=== PATIENT | female | born 1980 | race Caucasian/White ===

== ENCOUNTER 2017-08-06 06:13 | Day surgery (SDC) | payer OTHER ==
[~2017-08-06] VITALS: Ht 162.6 cm; Wt 53.5 kg
[~2017-08-06 06:13] MED LIST: ALL10TAB27 PO; AMIT50TA PO; CLON0.5T PO; COPA1INJ SC; CYCL10TA PO; DOXA1TAB71 PO; MYRB25TA PO; OMEP20CA3 PO; OXYC1TAB23 PO; VENL150C43 PO; VITA1CAP7 PO; [UNRECOGNIZED DRUG - OTHER] PO; [UNRECOGNIZED DRUG - OTHER] PO; botox IM
[2017-08-06] MEDS ORDERED: LR 1,000 ML IV ONE (06:30)
[2017-08-06] MEDS ORDERED: BUPIVACAINE HCL 0.5% 10 ML VIAL As Ordered ONE (06:55)
[2017-08-06] MEDS ORDERED: LIDOCAINE 1% SDV INJ 30 ML VIAL As Ordered ONE (06:55)
[2017-08-06] MEDS ORDERED: dexameTHASONE 4 MG/ML 1ML VIAL (J1100) As Ordered ONE (06:56)
[2017-08-06] MEDS ORDERED: fentaNYL 100 MCG/2 ML INJECTION (J3010) As Ordered ONE ×2 (07:03→08:12)
[2017-08-06] MEDS ORDERED: MIDAZOLAM INJ 2 MG/2 ML VIAL (J2250) As Ordered ONE (08:12)
[2017-08-06] MEDS ORDERED: ONDANSETRON 4MG/2ML VIAL (J2405) As Ordered ONE (08:12)
[2017-08-06] MEDS ORDERED: PROPOFOL 200 MG/20 ML VIAL As Ordered ONE (08:12)
[2017-08-06] MEDS ORDERED: LIDOCAINE 2% INJ 100 MG/5 ML SDV (FOR ANES.) As Ordered ONE (08:12)
[2017-08-06] MEDS ORDERED: OXYC1TAB23 PO (09:01)
[2017-08-06] MEDS ORDERED: LR 1,000 ML IV SCH (09:45)
[2017-08-06] MEDS ORDERED: ONDANSETRON 4MG/2ML VIAL (J2405) IV PRN (09:45)
[2017-08-06] MEDS ORDERED: PERCOCET 5MG/325MG TAB PO PRN (09:45)
[2017-08-06 11:01] VITALS: BP 102/61
--- NOTE | 2017-08-07 09:20 | RO ---
DATE OF PROCEDURE: 08/06/2017 PREPROCEDURE DIAGNOSES: Left foot bunion, hallux valgus, dorsal exostosis and chronic plantar fascitis. POSTPROCEDURE DIAGNOSES: Left foot bunion, hallux valgus, dorsal exostosis and chronic plantar fascitis. PROCEDURE: Left foot bunionectomy with first metatarsal osteotomy, dorsal exostectomy, and endoscopic plantar fascia release. SURGEON: Filipe Hurst DPM [employer]OR: None. ANESTHESIA: Monitored anesthesia care, preoperative injection of 20 mL of 1:1 mixture of 1% lidocaine plain and 0.5% Marcaine plain. ESTIMATED BLOOD LOSS: Minimal. MATERIALS: Arthrex 3.5 headless screw, #3-0 and #4-0 Vicryl, #4-0 nylon. INJECTABLES: 7 mL of Lidocaine and 1 mL of Decadron. COMPLICATIONS: None. CONDITION: Stable. INDICATIONS: Kirstin Gardner is a 36-year-old female who presents to [facility] with complaints of painful bunion, exostosis and chronic plantar fascitis to her left foot. She presents today for surgical correction. The patient's side and site were identified and marked in the preoperative holding area. Consent was reviewed and obtained. All risks, complications, and alternatives to the procedure were explained to the patient in detail. All questions were answered. DESCRIPTION OF PROCEDURE: The patient was brought to the operating room and placed on the operative room table in the supine position, monitored anesthesia care was delivered by the anesthesia team. Preoperative injection of 20 mL of 1:1 mixture of 1% lidocaine plain and 0.5% Marcaine plain were injected in the left foot. The left foot was prepped and draped in the normal sterile fashion. The patient received Ancef preoperatively. Attention was first paid to the heel. A medial incision was made with a #15 blade. A hemostat was used to palpate the plantar aspect of the plantar fascia. Following this, the trocar was inserted through the medial portal and a stab incision was made to the lateral heel, creating an exit portal. The trocar was removed leaving the cannula in place. The camera was inserted through the lateral portal and the plantar fascia was visualized. Using the Endotrac plantar fascia blade, the plantar fascia was released approximately two-thirds from medial to lateral, leaving the lateral one-third of the fascia intact. The site was irrigated with normal saline. Cannula was removed. Incision was repaired with #4-0 nylon. Next, attention was paid to the bunion and exostosis. A dorsal incision was drawn and carried through with a #15 blade. Dissection was carried first to the exostosis, which was located over the first metatarsocuneiform joint. Linear capsulotomy was performed, exposing the exostosis. This was resected with sagittal saw and smoothed with a rasp. The site was irrigated with normal saline and the capsule was repaired with #3-0 Vicryl. Next, attention was paid distally. A T-capsulotomy was performed, exposing the metatarsal head. Next, a lateral release was performed releasing the lateral capsule, sesamoidal ligaments and adductor tendon. McGlamry elevator was used to release the plantar structures. The medial eminence was resected with sagittal saw. An osteotomy was performed of the metatarsal head, transposing it laterally. This was fixated with an Arthrex 3.5 headless screw. The remaining bone ledge was resected with sagittal saw and smoothed with rasp. Site was irrigated with normal saline. Capsular repair was performed with #3-0 Vicryl, subcutaneous was closed with #4-0 Vicryl and skin was closed with #4-0 nylon. 1 mL Decadron was injected to the plantar heel. Sterile dressings were applied. Tourniquet was deflated. The patient was brought to post anesthesia care unit (PACU) vital signs stable, neurovascular status intact. She will be partial weightbearing of the left foot. She will followup in the office in 2 days.
== END 2017-08-06 11:12 | disposition home or self-care (01) ==
LOC: M SDC 06:13
PROVIDERS: ATTEND Podiatrist Foot & Ankle Surgery
DX: M20.12 Hallux valgus (acquired), left foot (principal); M72.2 Plantar fascial fibromatosis; M25.775 Osteophyte, left foot; G35 Multiple sclerosis; K21.9 Gastro-esophageal reflux disease without esophagitis; M54.2 Cervicalgia; F32.9 Major depressive disorder, single episode, unspecified; R32 Unspecified urinary incontinence; F12.90 Cannabis use, unspecified, uncomplicated; Z88.8 Allergy status to other drugs, medicaments and biological substances; Z79.899 Other long term (current) drug therapy; Z72.0 Tobacco use; Z86.79 Personal history of other diseases of the circulatory system; Z90.710 Acquired absence of both cervix and uterus; Z98.51 Tubal ligation status; Z85.3 Personal history of malignant neoplasm of breast; Z86.19 Personal history of other infectious and parasitic diseases
CPT/HCPCS: 28122; 28296; 29893; 88300; C1713

== ENCOUNTER → 2019-07-14 | Outpatient (REF) | payer BC ==
[~2019-07-14] MED LIST changes: -ALL10TAB27 PO; +ALL10TAB29 PO; -CLON0.5T PO; +CLON0.5T8 PO; +D-3-50003 PO; -DOXA1TAB71 PO; +DOXA2TAB3 PO; -OMEP20CA3 PO; +OMEP20CA4 PO; -VITA1CAP7 PO
[2019-07-15 13:34] LABS: AMORPHOUS SEDIMENT SMALL (NEGATIVE); APPEARANCE, URINE CLOUDY (CLEAR); BACTERIA, URINE AUTO 1+ (NEGATIVE); BILIRUBIN, URINE AUTO NEGATIVE (NEGATIVE); BLOOD, URINE BLOOD NEGATIVE (NEGATIVE); COLOR, URINE YELLOW (YELLOW); GLUCOSE, URINE (UA) AUTO NEGATIVE (NEGATIVE); KETONE, URINE AUTO NEGATIVE (NEGATIVE); LEUKOCYTE ESTERASE, URINE AUTO NEGATIVE (NEGATIVE); NITRITE, URINE AUTO NEGATIVE (NEGATIVE); PROTEIN, URINE AUTO NEGATIVE (NEGATIVE); RBC, URINE AUTO 3 /HPF (0-3); SPECIFIC GRAVITY URINE AUTO 1.012 (1.002-1.035); SQUAMOUS EPITHELIAL CELL UR AU 0 /HPF (0-6); UROBILINOGEN, URINE AUTO 0.2 mg/dL (0.0-2.0); WBC, URINE AUTO 0 /HPF (0-3)
== END ==
LOC: M SMT 12:52
PROVIDERS: ATTEND Nurse Practitioner Women's Health
DX: N31.9 Neuromuscular dysfunction of bladder, unspecified (principal)

== ENCOUNTER → 2020-07-20 | Outpatient (REF) | payer BC ==
[~2020-07-20] MED LIST changes: -ALL10TAB29 PO; +CETI-24 PO; +CLON0.5T2 PO; -CLON0.5T8 PO; +CYCL-707 PO; -CYCL10TA PO; +OMEP1CAP73 PO; -OMEP20CA4 PO
[2020-07-21 14:30] LABS: AMORPHOUS SEDIMENT SMALL (NEGATIVE); APPEARANCE, URINE CLOUDY (CLEAR); BACTERIA, URINE AUTO NEGATIVE (NEGATIVE); BILIRUBIN, URINE AUTO NEGATIVE (NEGATIVE); BLOOD, URINE BLOOD NEGATIVE (NEGATIVE); CALCIUM OXALATE CRYSTALS SMALL; COLOR, URINE YELLOW (YELLOW); GLUCOSE, URINE (UA) AUTO NEGATIVE (NEGATIVE); KETONE, URINE AUTO NEGATIVE (NEGATIVE); LEUKOCYTE ESTERASE, URINE AUTO NEGATIVE (NEGATIVE); MUCUS, URINE SMALL (NEGATIVE); NITRITE, URINE AUTO NEGATIVE (NEGATIVE); PROTEIN, URINE AUTO NEGATIVE (NEGATIVE); RBC, URINE AUTO 0 /HPF (0-3); SQUAMOUS EPITHELIAL CELL UR AU 1 /HPF (0-6); UROBILINOGEN, URINE AUTO 0.2 mg/dL (0.0-2.0); WBC, URINE AUTO 4 /HPF (0-3)
== END ==
LOC: M SMT 12:53
PROVIDERS: ATTEND Nurse Practitioner Women's Health
DX: N31.9 Neuromuscular dysfunction of bladder, unspecified (principal)